=== PATIENT | female | born 2000 | race Caucasian/White ===

== ENCOUNTER 2021-05-01 19:33 | Emergency (ER) | payer OTHER ==
[~2021-05-01] VITALS: Ht 152.4 cm; Wt 68.0 kg
== END 2021-05-01 22:17 | disposition home or self-care (01) ==
LOC: ER 19:33
DX: U07.1 COVID-19 (principal); B34.9 Viral infection, unspecified; R53.81 Other malaise; R09.81 Nasal congestion

== ENCOUNTER 2021-05-06 10:31 | Emergency (ER) | payer OTHER ==
[~2021-05-06] VITALS: Ht 167.6 cm; Wt 70.8 kg
[2021-05-06] MEDS ORDERED: MEDROLPACK PO (20:56)
[2021-05-06] MEDS ORDERED: PROAIR RESPICL90 MCG IH (20:56)
[2021-05-06] MEDS ORDERED: TUSNEL LIQUID178 ML PO (20:56)
[2021-05-06] MEDS ORDERED: ZITHROMAX500 MG PO (20:56)
== END 2021-05-06 21:03 | disposition home or self-care (01) ==
LOC: ER 10:31
DX: U07.1 COVID-19 (principal)